=== PATIENT | male | born 1990 | race African-American/Black ===

== ENCOUNTER 2021-03-27 08:34 | Emergency (ER) | payer OTHER ==
[~2021-03-27] VITALS: Ht 167.6 cm; Wt 86.2 kg
[~2021-03-27 08:34] MED LIST: no medications
[2021-03-27 08:44] VITALS: BP 122/71
--- NOTE | 2021-03-27 09:45 | NUR ---
SEEN AND EXAMINED BY .
--- NOTE | 2021-03-27 09:50 | NUR ---
PT IS WHEELED TO CT SCAN VIA [facility].
--- NOTE | 2021-03-27 12:26 | NUR ---
Morales rangel in ED - 03/27/21 at 1228 by SAVAGE Patient discharged to home in stable condition. Written and verbal after care instructions given. Patient verbalizes understanding of instruction. Pt ambulatory with a steady gait
--- NOTE | 2021-03-27 12:27 | NUR ---
Patient discharged in custody in stable condition. Written and verbal after care instructions given. Patient verbalizes understanding of instruction.
== END 2021-03-27 12:28 ==
LOC: ER 08:42
DX: S16.1XXA Strain of muscle, fascia and tendon at neck level, initial encounter (principal); S00.81XA Abrasion of other part of head, initial encounter; Y08.89XA Assault by other specified means, initial encounter; Y93.89 Activity, other specified; Y92.89 Other specified places as the place of occurrence of the external cause; Y99.8 Other external cause status
CPT/HCPCS: 70450-TC; 72125-TC

== ENCOUNTER 2021-12-22 12:55 | Emergency (ER) | payer MEDICAID, OTHER ==
[~2021-12-22] VITALS: Ht 162.6 cm; Wt 81.6 kg
[2021-12-22 13:20] VITALS: BP 122/81
[2021-12-22] MEDS ORDERED: HYDR-4303 PO ×2 (14:16→14:29)
[2021-12-22] MEDS ORDERED: CYCL5TAB PO ×2 (14:16→14:29)
--- NOTE | 2021-12-22 14:32 | NUR ---
Patient discharged to home in stable condition. Written and verbal after care instructions given. Patient verbalizes understanding of instruction.
== END 2021-12-22 14:32 | disposition home or self-care (01) ==
LOC: ER 12:58
DX: S46.911A Strain of unspecified muscle, fascia and tendon at shoulder and upper arm level, right arm, initial encounter (principal); V99.XXXA Unspecified transport accident, initial encounter; Y93.89 Activity, other specified; Y92.89 Other specified places as the place of occurrence of the external cause; Y99.8 Other external cause status

== ENCOUNTER 2021-12-29 00:37 | Emergency (ER) | payer MEDICAID ==
[~2021-12-29] VITALS: Ht 165.1 cm; Wt 81.6 kg
[~2021-12-29 00:37] MED LIST changes: +CYCL5TAB PO; +HYDR-4303 PO
[2021-12-29 00:54] VITALS: BP 138/76
[2021-12-29] MEDS ORDERED: ONDA4TAB5 PO (01:00)
[2021-12-29] MEDS ORDERED: ONDANSETRON 4 MG TAB.RAPDIS SL ONE (01:00)
[2021-12-29] MEDS ORDERED: ONDANSETRON 4 MG TAB.RAPDIS ONE (01:01)
== END 2021-12-29 01:05 | disposition home or self-care (01) ==
LOC: ER 00:42
DX: T62.0X1A Toxic effect of ingested mushrooms, accidental (unintentional), initial encounter (principal); R11.0 Nausea; F19.10 Other psychoactive substance abuse, uncomplicated; Z79.899 Other long term (current) drug therapy; Y92.89 Other specified places as the place of occurrence of the external cause
CPT/HCPCS: 99283; Q0162

== ENCOUNTER 2022-02-22 05:24 | Emergency (ER) | payer MEDICAID ==
[~2022-02-22] VITALS: Ht 165.1 cm; Wt 81.6 kg
[~2022-02-22 05:24] MED LIST changes: +ONDA4TAB5 PO
[2022-02-22 05:36] VITALS: BP 119/72
[2022-02-22] MEDS ORDERED: diphenhydrAMINE HCL 50 MG CAPSULE ONE (05:50)
[2022-02-22] MEDS ORDERED: VALACYCLOVIR HCL 500 MG TABLET ONE (05:51)
--- NOTE | 2022-02-22 05:54 | NUR ---
TO ER BED 8. BIBSELF C/O SKIN VESICLES X6HRS [employer]. WOKE UP ITCHING AFTER SLEEPING. PT TOOK BENADRYL WITH LITTLE RELIEF. VESICLES NOTED ON FACE AND EXTREMITIES. VSS.
[2022-02-22] MEDS: diphenhydrAMINE HCL 25 MG CAPSULE PO ONE (05:56)
[2022-02-22] MEDS: VALACYCLOVIR HCL 500 MG TABLET PO ONE (05:56)
[2022-02-22] MEDS ORDERED: VALA10002 PO (06:49)
[2022-02-22] MEDS ORDERED: DIPH50CA4 PO (06:49)
[2022-02-22] MEDS ORDERED: LIDOCAINE VISCOUS 2% UD 15 ML UDC ONE (06:57)
[2022-02-22] MEDS: LIDOCAINE VISCOUS 2% UD 15 ML UDC MM ONE (06:58)
--- NOTE | 2022-02-22 06:59 | NUR ---
Patient discharged to home in stable condition. Written and verbal after care instructions given. Patient verbalizes understanding of instruction.
== END 2022-02-22 07:00 | disposition home or self-care (01) ==
LOC: ER 05:28
DX: B01.9 Varicella without complication (principal); Z79.899 Other long term (current) drug therapy
CPT/HCPCS: 99283; Q0163

== ENCOUNTER 2022-03-01 18:44 | Emergency (ER) | payer MEDICAID ==
[~2022-03-01] VITALS: Ht 162.6 cm; Wt 64.4 kg
[~2022-03-01 18:44] MED LIST changes: +DIPH50CA4 PO; +VALA10002 PO
[2022-03-01 18:50] VITALS: BP 129/74
--- NOTE | 2022-03-01 18:50 | NUR ---
THE PATIENT BIBS FOR GEN BODY RASH. WILL CONTINUE TO MONITOR THE PATIENT.
--- NOTE | 2022-03-01 19:17 | NUR ---
Patient discharged to home in stable condition. Written and verbal after care instructions given. Patient verbalizes understanding of instruction.
== END 2022-03-01 19:17 | disposition home or self-care (01) ==
LOC: ER 18:52
DX: B01.9 Varicella without complication (principal); Z79.899 Other long term (current) drug therapy

== ENCOUNTER 2024-12-09 17:29 | Emergency (ER) | payer MEDICAID ==
[~2024-12-09] VITALS: Ht 165.1 cm; Wt 81.6 kg
[2024-12-09 17:40] VITALS: BP 109/68; TEMP 98.8
[2024-12-09] MEDS ORDERED: CEFTRIAXONE 1 G VIAL ONE (18:20)
[2024-12-09] MEDS ORDERED: LIDOCAINE 1% INJ 50 ML MDV IJ ONE (18:22)
[2024-12-09] MEDS ORDERED: DOXY-326 PO (18:28)
[2024-12-09] MEDS: CEFTRIAXONE 1 G VIAL IM ONE (18:40)
[2024-12-09 18:59] VITALS: O2SAT 97
[2024-12-10 15:59] LABS: HIV-1 p24 ANTIGEN NON REACTIVE (NONREACTIVE); HIV-1/2 ANTIBODY NON REACTIVE (NONREACTIVE)
[2024-12-11 06:11] LABS: RAPID PLASMA REAGIN QUAL. Non Reactive (Non Reactive)
[2024-12-11 21:12] LABS: CHLAMYDIA TRACHOMATIS NAA Negative (Negative); NEISSERIA GONORRHOEAE NAA Negative (Negative)
== END 2024-12-09 19:00 | disposition home or self-care (01) ==
LOC: ER 17:33
DX: Z20.2 Contact with and (suspected) exposure to infections with a predominantly sexual mode of transmission (principal); F17.200 Nicotine dependence, unspecified, uncomplicated; Z79.624 Long term (current) use of inhibitors of nucleotide synthesis; Z79.899 Other long term (current) drug therapy
CPT/HCPCS: 99283; 96372; 87806; 87491; 87591; J3490; J0696; 36415; 86592; 86593